=== PATIENT | male | born 1965 | race Caucasian/White ===

== ENCOUNTER 2024-11-29 06:22 | Day surgery (SDC) | payer OTHER, SELFPAY | END 2024-11-29 12:22 | disposition home or self-care (01) | LOC: GI 06:22 | PROVIDERS: ATTENDING PHYSICIAN Internal Medicine | DX: Z12.11 Encounter for screening for malignant neoplasm of colon (principal); K64.8 Other hemorrhoids; D12.3 Benign neoplasm of transverse colon; D12.2 Benign neoplasm of ascending colon; K62.1 Rectal polyp | CPT/HCPCS: 45385; 45380; 88305 ==